=== PATIENT | male | born 2000 | race Caucasian/White ===

== ENCOUNTER 2024-08-26 15:41 | Emergency (ER) | payer OTHER ==
[~2024-08-26] VITALS: Ht 170.2 cm; Wt 67.0 kg
[2024-08-26] MEDS ORDERED: TRAZODONE HCL50 MG PO (17:14)
[2024-08-26 17:29] VITALS: BP 122/87
== END 2024-08-26 17:30 | disposition home or self-care (01) ==
LOC: ED 15:41
DX: G47.00 Insomnia, unspecified (principal)
CPT/HCPCS: 99284

== ENCOUNTER 2024-08-27 14:56 | Emergency (ER) | payer OTHER ==
[~2024-08-27] VITALS: Ht 170.2 cm; Wt 66.1 kg
[~2024-08-27 14:56] MED LIST: TRAZODONE HCL50 MG PO
--- OUTSIDE RECORDS SUMMARY | 2024-08-27 15:05 | XMS ---
PreManage Notification: ROCHELLE HUNTER Security [employer] Events No recent Security Events currently on file CRITERIA MET - [facility] - 2 Visits in 30 Days CARE PROVIDERS -, [facility] Dentist: Rn Enterostomal [facility] PHONE: [phone] AMELIA PRIMARY Clinic/Center: [facility] PHONE: [phone] Manuel has no Care Guidelines for this patient. E.DYoel VISIT COUNT (12 MO.) 3 [facility] [place] TOTAL 6 NOTE: Visits indicate total known visits. ED/UCC VISIT TRACKING (12 MO.) 08/27/2024 14:[facility] [place] TYPE: Emergency COMPLAINT: - SUICIDAL 08/27/2024 12:[address] [facility] [place] TYPE: Emergency COMPLAINT: - SLEEP ISSUE 08/26/2024 15:[address] [facility] [place] TYPE: Emergency COMPLAINT: - MENTAL HEALTH CRISIS [facility] COMPLAINT: - PT BEHAVIORAL DIAGNOSES: - Suicidal ideations 04/22[facility]2024 [facility] COMPLAINT: - PT STS ABD PAIN,CHEST PAIN DIAGNOSES: - Chest pain, unspecified - Pain in unspecified shoulder - Unspecified abdominal pain 12/11/2023 18:39 [facility] [place] [facility]: Emergency DIAGNOSES: - Bipolar disorder, current episode depressed, moderate - Depression, unspecified - Chest Pain - Mental Health Problem - Mental Jose M INPATIENT VISIT TRACKING (12 MO.) 07/09/2024 18:07 [facility] [place] TYPE: Psychiatric Services DIAGNOSES: 0. Major depressive disorder, recurrent, severe with psychotic symptoms 0. Unspecified psychosis not due to a substance or known physiological condition 1. Unspecified psychosis not due to a substance or known physiological condition 2. Bipolar disorder, current episode manic severe with psychotic features 2. Food insecurity 2. Hypokalemia 2. Nicotine dependence, other tobacco product, uncomplicated 2. Personal history of suicidal behavior 2. Suicidal ideations [email or web address]
[2024-08-27 15:34] LABS: BASOPHILS 1.1 % (0.2-1.2); EOSINOPHILS 0.5 % (0.8-7.0); LYMPHOCYTES 26.5 % (21.8-53.1); MCH 29.8 PG (25.7-32.2); MCHC 34.9 g/dL (32.3-36.5); MCV 85.4 fL (79.0-92.2); MONOCYTES 6.9 % (5.3-12.2); NEUTROPHILS 64.8 % (34.0-67.9); RBC 4.86 M/uL (4.63-6.08)
[2024-08-27 15:56] LABS: ALCOHOL, MEDICAL <3 ng/dL (<3); ALT (SGPT) 14 U/L (14-59); AST (SGOT) 11 U/L (15-37); GLOMERULAR FILTRATION RATE,EST 130 mL/min (>60); PROTEIN, TOTAL 7.7 g/dL (6.4-8.2); TSH, 3RD GENERATION 0.660 uIU/mL (0.358-3.740); UREA NITROGEN 13 mg/dL (7-18)
[2024-08-27 17:09] LABS: BLOOD/HGB, URINE NEGATIVE (Negative); KETONE, URINE SMALL (Negative); LEUK ESTERASE, URINE NEGATIVE (negative); NITRITE, URINE NEGATIVE (negative)
[2024-08-27 17:25] LABS: AMPHETAMINES, URINE NEGATIVE (NEGATIVE); BARBITURATES, URINE NEGATIVE (NEGATIVE); BENZODIAZEPINE, URINE NEGATIVE (NEGATIVE); CANNABINOID, URINE POSITIVE (NEGATIVE); COCAINE, URINE NEGATIVE (NEGATIVE); ECSTASY, URINE NEGATIVE (NEGATIVE); FENTANYL, URINE NEGATIVE (NEGATIVE); METHADONE, URINE NEGATIVE (NEGATIVE); OPIATES, URINE NEGATIVE (NEGATIVE); OXYCODONE, URINE NEGATIVE (NEGATIVE); PHENCYCLIDINE, URINE NEGATIVE (NEGATIVE)
[2024-08-27 18:35] VITALS: BP 136/86
== END 2024-08-27 18:35 | disposition home or self-care (01) ==
LOC: ED 14:56
PROVIDERS: Emergency Medicine
DX: R45.851 Suicidal ideations (principal)
CPT/HCPCS: 36415; 80053; 80307; 81003; 84443; 85025; 99284; G0480